=== PATIENT | female | born 1960 | race Caucasian/White ===

== ENCOUNTER → 2025-02-21 | Outpatient (CLI) | payer MEDICARE, SELFPAY ==
[2025-02-21 17:53] LABS: Hematocrit 37.2 % (37-47); Hemoglobin 12.5 g/dL (12.0-15.0); Immature Granulocytes Count 0.010 X10^3/uL (0.0-0.0); Mean Corp Hgb Conc 33.6 g/dL (32-36); Mean Corpuscular Volume 91.6 fL (81-99); Mean Platelet Vol. 9.8 fl (6.2-12.0); NRBC Flagged by Analyzer 0 % (0-5); Platelet Count 260 K/mm3 (150-450); RBC Distribution Width CV 12.2 % (11.6-14.6); RBC Distribution Width SD 41.3 fl (35.1-43.9); Red Blood Count 4.06 M/mm3 (4.2-5.4); White Blood Count 5.3 K/mm3 (4.4-11.0)
[2025-02-21 18:19] LABS: PTHIN 38 pg/mL (11-61)
[2025-02-21 18:34] LABS: Calcium 9.7 mg/dL (7.6-11.0); Ferritin 153 ng/mL (22-378); Vitamin B12 957 pg/mL (180-914); Vitamin D,25 Hydroxy 40.3 ng/mL (30-100)
[2025-02-27 06:08] LABS: Zinc, Plasma or Serum 64 ug/dL (44-115)
== END | disposition home or self-care (01) ==
PROVIDERS: Referring Provider Physician Assistant; Visit Provider Physician Assistant
DX: L65.0 Telogen effluvium (principal)
CPT/HCPCS: 36415; 82306; 82310; 82607; 82728; 83970; 84630; 85025; 86376